=== PATIENT | male | born 2000 | race Caucasian/White ===

== ENCOUNTER 2022-08-12 11:50 | Outpatient (RCR) | payer BC, SELFPAY ==
--- NOTE | 2022-08-12 12:53 | HP.PTEVAL_ITS ---
Patient's Visit Information MARIA DE JESUS PIZARRO is a 22 year old M referred to Physical Therapy by ISAIAH Lewis with a diagnosis of Quad Tendonitis. Date of Evaluation: 08/12/22 Physical Therapist: Iwona Velez MPT - Visit Plan Plan: Pt only wants a HEP. HEP was given. Bridges, SLR, S/L hip abd, heel slides in chair and supine, Prone hip ext with knee bent, goblet squat, and SLB. Pt will call in in 3 weeks and let us know if his knee is any better - Subjective Pt reports that he has a pain in his R knee since April. It was a stiffness and grew to a constant pain. His ortho Dr feels that it is tendonitis but he does not feel like it is. He feels that he could have bumped it along the way but not sure of an exact incident. He reports that he has popping in his R knee. It is a constant pain. Walking hurts it. He has not been doing any exercises with his knee at all. If he is driving with light pressure he can feel it more. He has no N&T. He has stiffness and annoying pain. He feels that the pain is in the joint. He has been keeping his knee extended in s itting. Anti-inflamm and not helping much at all. Stairs: going up the stair he tries to keep pressure on the L knee. He has a bike on a life skills trainer. If he lays on his stomach he will get anterior knee pain or if he sleeps on either side he will get pain (sleeping on either side). Pt wants a HEP to do on his own time. - Pain R knee pain Pain Intensity (Out of 10): 3 Comment: up and walking around 5/10 - Objective Gait: Walks with slightly decreased stance time on the R. Stairs: up and down recip. No handrail. Going up the step he has slight hesitancy putting pressure through the R leg to ascend and descending he ER his R LE and spends less time on the R LE. R knee AROM: 0-140 degrees B. Good Quad set. Able to SLR X 10 without touching the table in between. R knee MMT: R hip flex 15.7 and L 14.8. R knee ext 13.9# and L knee ext 18.7. R knee flex 6.1 and L 9.2. R hip abd 11.3 and L hip abd 13. SLB: B 30 seconds with a little less stability on the R compared to the L. Pt had no pain with McMurrays (just his basic pain), - Anterior Drawer on the R. - Balance/Special Test Scores Lower Extremity Functional Score: 45 - Goals Goal 1:: I HEP - Rehabilitation Potential Rehabilitation Potential: Good - Anticipated Interventions Thank you for the opportunity to evaluate your patient. For Medicare and Medicare HMO plans, please review the plan of care and approve it. It will need to be FAXED BACK to us at [phone] for Medicare purposes. For Medicare only, by signing this I certify the plan of care. Please let me know if there are questions or concerns regarding this plan of care. Physician Signature: Date:
--- NOTE | 2022-12-14 15:16 | HP.PTDCSUM ---
Discharge Summary D/C summary: It has been my pleasure to treat MARIA DE JESUS PIZARRO referred by ISAIAH Lewis, with the diagnosis of Quad Tendonitis for a total of 1 visit(s). Discharge Date: 12/14/22 Please see the following information for a summary of their discharge status. Pain R knee pain: Pain Intensity (Out of 10): 3 Goals Goal 1:: I HEP Plan Plan: Pt only wants a HEP. HEP was given. Bridges, SLR, S/L hip abd, heel slides in chair and supine, Prone hip ext with knee bent, goblet squat, and SLB Pt will call in in 3 weeks and let us know if his knee is any better D/C Information Discharge Comments: DC PT as only had a HEP d/c sentence: If there are questions or concerns regarding this patient's physical therapy, please feel free to call me at [phone]. Thank you for the referral of this patient. Sincerely, Iwona Velez, MPT Balance/Gait/Functional tests Balance/Special Test Scores Lower Extremity Functional Score: 45
== END 2022-08-12 19:00 | disposition home or self-care (01) ==
LOC: PT 11:50
DX: M76.899 Other specified enthesopathies of unspecified lower limb, excluding foot (principal); M25.561 Pain in right knee
CPT/HCPCS: 97110; 97161

== ENCOUNTER → 2023-05-25 | Outpatient (CLI) | payer BC, SELFPAY ==
[2023-05-25 10:18] LABS: Absolute Neutrophil Count 3.8 X10^3/uL (2.0-7.7); Basophil# 0.05 X10^3/uL; Basophil% 0.8 % (0-1); Eosinophil# 0.15 X10^3/uL; Eosinophils% 2.4 % (0-5); Hematocrit 47.1 % (40-54); Hemoglobin 16.1 g/dL (13.0-16.5); Lymphocyte % 27.7 % (19-41); Mean Corp Hgb Conc 34.2 g/dL (32-36); Mean Corpuscular Hgb 28.5 pg (27.0-32.0); Mean Corpuscular Volume 83.5 fL (80-94); Mean Platelet Vol. 10.5 fl (6.2-12.0); Monocyte# 0.37 X10^3/uL; NRBC Flagged by Analyzer 0 % (0-5); Neutrophil # 3.84 X10^3/uL (2.7-7.7); Neutrophil % 62.8 % (47-70); Platelet Count 283 K/mm3 (150-450); RBC Distribution Width CV 11.6 % (11.6-14.6); RBC Distribution Width SD 34.8 fl (35.1-43.9); Red Blood Count 5.64 M/mm3 (4.6-6.2); White Blood Count 6.1 K/mm3 (4.4-11.0)
[2023-05-25 11:09] LABS: ALB/GLOB Ratio 1.3 RATIO (0.9-2.4); AST(SGOT) 15 U/L (15-37); Alanine Aminotransfer ALT/SGPT 32 U/L (16-61); Albumin, Serum 4.4 g/dL (3.2-5.0); Alkaline Phosphatase 42 U/L (45-117); Anion Gap 3 (5-15); BUN 17 mg/dL (7-18); BUN/Creat Ratio 15.6 RATIO (10-20); Calcium,Total 9.9 mg/dL (8.5-10.1); Chloride 106 mmol/L (98-107); Creatinine, Serum 1.09 mg/dL (0.70-1.30); EST Glomerular Filtration Rate 88 mL/min (>60); Est Glom Filt Rate - Afr Amer 107 mL/min (>60); Globulin 3.5 g/dL (2.2-4.2); Glucose 86 mg/dL (74-106); Potassium 4.3 mmol/L (3.5-5.1); Protein, Total 7.9 g/dL (6.4-8.2); Sodium Level 138 mmol/L (136-145); Thyroid Stim Hormone (TSH) 1.09 uIU/mL (0.358-3.74)
== END | disposition home or self-care (01) ==
LOC: LAB 09:21
PROVIDERS: PCP Internal Medicine; Referring Provider Internal Medicine; Visit Provider Internal Medicine
DX: R07.9 Chest pain, unspecified (principal); F32.1 Major depressive disorder, single episode, moderate
CPT/HCPCS: 36415; 80053; 82306; 84443; 85025

== ENCOUNTER → 2023-06-16 | Outpatient (CLI) | payer BC, SELFPAY ==
[2023-06-19 15:08] LABS: H. PYLORI STOOL AG Negative (Negative)
== END | disposition home or self-care (01) ==
LOC: LABSPEC 15:05
PROVIDERS: PCP Internal Medicine; Referring Provider Internal Medicine; Visit Provider Internal Medicine
DX: K21.9 Gastro-esophageal reflux disease without esophagitis (principal)
CPT/HCPCS: 87338

== ENCOUNTER → 2023-07-11 | Outpatient (CLI) | payer BC, SELFPAY ==
--- NOTE | 2023-07-11 08:48 | RAD_ITS ---
STUDY: AIR CONTRAST ESOPHAGRAM AND UPPER GI SERIES REASON FOR EXAM: Male, 23 years old. K21.9 - Gastro-esophageal reflux disease without esophagitis FLUOROSCOPY TIME (if supplied): (1 minute and 37 seconds) minutes/seconds. 47.96 mGy. 18 images were submitted. TECHNIQUE: SINGLE CONTRAST AND AIR CONTRAST FLUOROSCOPIC IMAGES. COMPARISON: None. FINDINGS: The cervical esophagus demonstrates normal motility without aspiration. There is no stricture or extrinsic mass effect. No intraluminal polypoid mass is identified. The thoracic esophagus distends well without stricture or mucosal fold thickening. No mucosal ulcerations are identified. There is no extrinsic mass effect. There are no diverticula. The patient ingested a 12 mm tablet of barium without any difficulty. No hiatal hernia or gastroesophageal reflux was identified. The stomach distends well without mucosal fold thickening or mucosal ulceration. There is no intraluminal mass. The duodenal bulb is freely distensible without deformity or ulceration. The duodenal sweep is normal in position and caliber. RAD/Upper GI w/BA Swallow IMPRESSION: Normal air-contrast esophagram and upper GI series. Electronically Signed: Rubens Mckeon MD at 9:44 EST ,
== END | disposition home or self-care (01) ==
LOC: RAD 08:47
PROVIDERS: PCP Internal Medicine; Referring Provider Surgery; Visit Provider Surgery
DX: K21.9 Gastro-esophageal reflux disease without esophagitis (principal)
CPT/HCPCS: 74246

== ENCOUNTER 2023-08-11 08:10 | Day surgery (SDC) | payer BC, SELFPAY ==
[2023-08-11] MEDS: Lactated Ringers 1,000 ML 15 ML IV (08:43)
[2023-08-11 08:46] VITALS: BP 118/76; PULSE 58; RESP 18; TEMP 36.8; O2SAT 100; BMI 26.5
--- NOTE | 2023-08-11 09:30 | IMM_PTH ---
PATHOLOGY RESULTS PATIENT: MARIA DE JESUS PIZARRO LOC: EN U#:[id number] AGE/SX: 23/M ROOM: RE08/11/[address]: Dr. Adam Terry MD : 2000 BED: DIS: 08/11/2023 SPEC #: [id number] RECD: 08/14/23 09:31 STATUS: KHADRA MARCELO #: [id number] JACQUELIN: 08/11/23 09:[address]: Adam Terry DEPT: IMMUNOHISTOCHEMISTRY RECD BY: Katrin Bowling ENTERED: 08/14/23 09:32 SP TYPE: IMMUNO OTHR DR: Dr. Nicki Corbett MD Tissues: Stomach, NOS Procedures: H Pylori (initial) PHYSICIAN & INSTITUTION [place] [id number] SPECIMEN INFORMATION: Tissue Source: A - Antrum Clinical Info: Early satiety, heartburn Specimen Number: [id number] CPT code: 61646 METHODOLOGY: Deparaffinized sections of prefer/formalin-fixed tissue or PAP/DQ stained slides are incubated with monoclonal/polyclonal antibodies/oligonucleotide probes. Localization is made via biotin free immunoperoxidase method. Appropriate controls are performed and reacted as expected. Results on target cell population are indicated in the following table: RESULTS: ANTIBODY / CLONE RESULT Block A H Pylori (polyclonal) negative These tests were developed and their performance characteristics determined by [facility]. They may not have been cleared or approved by the U.S. Food and Drug Administration. The FDA has determined that such clearance or approval is not necessary. The above immunohistochemical/dualISH markers are ordered and reviewed by the Pathologist. INTERPRETATION: A. Antrum, biopsy: Negative for Helicobacter pylori organisms. AM:leif 08/15/2023
--- NOTE | 2023-08-11 09:30 | EGD_PTH ---
PATHOLOGY RESULTS PATIENT: MARIA DE JESUS PIZARRO LOC: EN U#:[id number] AGE/SX: 23/M ROOM: RE08/11/[address]: Dr. Adam Terry MD : 2000 BED: DIS: 08/11/2023 SPEC #: [id number] RECD: 08/14/23 08:05 STATUS: KHADRA MARCELO #: [id number] JACQUELIN: 08/11/23 09:[address]: Adam Terry DEPT: SURGICAL PATHOLOGY RECD BY: Shelbie Moss ENTERED: 08/14/23 08:05 SP TYPE: EGD BIOPSY JAKY DR: Dr. Nicki Corbett MD Tissues: Gastric mucous membrane Esophageal mucous membrane Esophageal mucous membrane Procedures: Special Stain Group II Surgery Specimen Level IV Alcian Blue/PAS (control) HEADER OPERATION: EGD - PH probe PRE-OP DIAGNOSIS: Early satiety, heartburn TISSUE SUBMITTED: A - Antrum for H. pylori and pathology, B - Gastroesophageal junction biopsy, C - Mid esophageal biopsy MICROSCOPIC DIAGNOSIS A. Antrum, biopsy: Mild gastritis. See microscopic description and comment. B. Gastroesophageal junction, biopsy: Fragments of gastroesophageal mucosa with chronic inflammation. Intestinal metaplasia (goblet cell metaplasia) not identified. See comment. C. Mid esophageal biopsy: Fragments of benign squamous epithelium. SJ:rg 08/15/2023 COMMENT A. The results of immunohistochemistry for Helicobacter pylori will be reported separately ([id number]). B. The specimen predominantly consists of squamous mucosa. Alcian blue/PAS stain with matched control is used in the evaluation of the specimen. MICROSCOPIC DESCRIPTION Slides are reviewed. A. The specimen shows fragments of gastric mucosa with chronic inflammatory cell infiltrates in the lamina propria consisting of lymphocytes and plasma cells, consistent with mild chronic gastritis. GROSS DESCRIPTION A - Received in fixative is one container labeled with the patient's name and designated antrum biopsy. The specimen consists of three irregular fragments of light lorenzana soft tissue that in aggregate measure 0.6 x 0.2 x 0.1 cm. The specimen is totally submitted in one cassette. B - Received in fixative is one container labeled with the patient's name and designated GE junction biopsy. The specimen consists of multiple irregular fragments of light lorenzana soft tissue that in aggregate measure 0.6 x 0.3 x 0.1 cm. The specimen is totally submitted in one cassette. C - Received in fixative is one container labeled with the patient's name and designated mid esophagus biopsy. The specimen consists of two irregular fragments of light lorenzana soft tissue that in aggregate measure 0.5 x 0.4 x 0.1 cm. The specimen is totally submitted in one cassette. / SJ:rg 08/14/2023 TC:3 CPT: 81496 x3, 77053
--- NOTE | 2023-08-11 09:31 | PCM.HP.BLA ---
History and Physical Date of Admission: 08/11/23 Date of Service: 07/06/23 MR#: [id number] Acct: [id number] Name: MARIA DE JESUS PIZARRO Rep #: [id number] : 2000 Provider: Dr. Adam Terry MD Age/Sex: 23/M Location: [facility] Status: Signed Intake Vital Signs 06/14/2406:34 07/06/2412:04 Height 5 ft 11 in 5 ft 11 in Weight: 174 lb 6 oz 178 lb BMI 24.3 24.8 BP 120/60 134/86 H Blood Pressure Location Lt brachial Rt brachial Position Sitting Sitting Respiration 16 17 Pulse 81 76 Pulse Source Monitor Monitor Temp 98.6 F 97.4 F L Temp Source Temporal Temporal Pulse Oximetry (%) 97 99 Oxygen Delivery Method room air room air Intake Visit Reasons: ACID REFLUX Chief Complaint: acid reflux Is patient in pain?: No Allergies No Known Allergies Allergy (Unverified 07/06/23 13:05) Medications ibuprofen 200 mg tablet 200 mg PO Q6H PRN 07/04/22 [History Confirmed 07/06/23] omeprazole 20 mg capsule,delayed release 20 mg PO DAILY #30 caps 06/20/23 [Rx Confirmed 07/06/23] creatine monohydrate 5,000 mg oral powder packet mg PO 07/06/23 [History Confirmed 07/06/23] multivitamin 1 tab PO DAILY 07/06/23 [History Confirmed 07/06/23] PFSH Medical History Acute bronchitis, unspecified Acute pharyngitis, unspecified Gastroenteritis Seasonal allergies URI (upper respiratory infection) Surgical History No pertinent past surgical history Family History Grandfather Heart diseaseGrandmother Alcoholism Social History household members: family current occupational status: employed and student current occupation: [employer], studying natural resource management Smoking Status: Never smoker Electronic Cigarette Use: not used alcohol intake: never substance use type: former substance user Date of last use: 02/2023 and marijuana what type of physical activity do you participate in: weight training frequency: 3-4 times per week do you feel safe at home: Yes HPI HPI HPI: Patient is a 23-year-old male who presents for what is initially described as acid reflux , however as he proceeds with his history he admits that his symptoms are primarily more of heartburn. They are referred for surgical consultation from Dr. Corbett. Patient shares that his early symptoms began his acid reflux which she concluded was due to too much caffeine and states that when she was able to cut back on this caffeine (to 1 cup of coffee daily) he had near complete resolution of his symptoms for the summer. He states that then starting in March he began using lots of marijuana and this led to not only recurrence of his symptoms but a early feeling of fullness. He shares that while quitting marijuana helped, it did so incompletely. He was a started on omeprazole and he reports that this also helped modestly but he continued with some nausea. He states that feeling hungry does not feel the same . He denies any experience of regurgitation or acid burning. He states that his heartburn symptoms are occurring with a frequency of 1 time per week whereas previously they were 1 time per day. His biggest complaint, however, is that he is feeling uncomfortably full after a normal sized meal. He shares that his last use of marijuana was on 07/02/2023 but previously he used all day every day . They have not attempted dietary modifications beyond the omission of caffeine as he states he was unaware of these dietary recommendations. He also shares that he has not tried any additional [id number] medications besides the omeprazole. He does report that he tries to avoid eating at least a couple of hours before bedtime and tends to eat dinner around 8 PM before retiring to bed at around 11 PM or midnight. He does not sleep with his head propped on a pillow. Previous work-up has included: H. pylori testing which was negative. ROS General General: No weight change, appetite, fatigue, colon cancer, breast cancer or weakness HEENT HEENT: No difficulty swallowing, eye injury, eye surgery, swollen glands or hoarseness Endo Endocrine: No thyroid disease, diabetes mellitus, thyroid cancer, Hair loss, heat intolerance or cold intolerance Skin Skin: No rash or changing moles Musc Musculoskeletal: No back problems, arthritis, rheumatoid arthritis, gout or joint pain Cardio Cardiovascular: No murmur, pacemaker, heart disease, atrial fibrillation, high blood pressure, heart attack, heart stent, palpitations, shortness of breat with exertion or chest pain Psych Psychiatric: Yes depression and anxiety; No hearing voices Resp Respiratory: No shortness of breath, No sleep apnea, No cough, No COPD, No asthma, No emphysema and No wheezing Gastro Gastrointestinal: No abdominal pain, Yes nausea or vomiting, No diarrhea, No constipation, No blood in stool, Yes acid reflux, No hemorrhoids, No ulcers, No gallbladder problem and No black,tarry stools Nilesh Hematologic: No blood thinners, No blood disorders, No bleeding, No anemia and No blood clots Neuro Neurologic: No system reviewed and no additional complaints, except as documented, No as per HPI, No abnormal gait, No abnormal hearing, No abnormal movements, No abnormal speech, No behavioral changes, No burning sensations, No confusion, No convulsions, No disequilibrium, No dizziness, No localized weakness, No frequent falls, No headache(s), No lack of coordination, No loss of vision, No memory loss, No numbness, No other visual disturbances, No radicular pain, No restless legs, No sensory deficit, No syncope, No tingling, No tremor(s), No weakness and No other Exam Const General: cooperative and anxious Orientation: alert and awake Resp Effort & Inspection: normal respiratory effort GI Other: No scars, nondistended, thin, nontender to palpation apart from mild tenderness of the epigastrium Assessment and Plan Assessment and Plan (1) Heartburn symptom: Status: Acute (2) Early satiety: Status: Acute Orders: Orders Upper GI w/BA Swallow Today K21.9 - Gastro-esophageal reflux disease without esophagitis Plan Patient is a 23-year-old male who presents with a somewhat nonspecific history of heartburn, possible acid reflux, and symptoms of early satiety which were initially linked back to a excessive use of caffeine. However, after patient has cut back on using caffeine he persists with symptoms?particularly bothered by the early satiety. He was negative for H. pylori per stool antigen testing. He does appear to have had a modest benefit with initiation of PPI medication (omeprazole). Additionally confounding this picture is his use of cannabis. I have strongly urged him to immediately cease any use of cannabis as we work to try to sort out his symptoms. I also discussed with him the possibility of underlying hiatal hernia or dyspepsia. I agree with the initial course of action to pursue EGD, but I additionally am recommending we pursue pH probe placement as a way of trying to correlate with his symptoms any objective data about his acid reflux. Lastly, I have recommended that we pursue esophagram with upper GI and barium swallow. Mr. Pizarro is receptive of these recommendations and confirms his intent to stop the cannabis use. I have examined the patient and the H&P has been reviewed. There are no clinical changes since date of exam. Patient confirms that he has discontinued his PPI as instructed. He notes that he has not had any increased frequency of symptoms but does have persistent complaints of reflux/regurgitation. He denies any further questions related to the procedure so we will proceed for upper endoscopy with pH probe placement as discussed in greater detail above.
[2023-08-11 10:00] VITALS: BP 112/74; BP 118/76; PULSE 60; RESP 14; TEMP 36.2; O2SAT 95
[2023-08-11 10:05] VITALS: BP 118/72; BP 118/76; PULSE 74; RESP 16; O2SAT 99
--- NOTE | 2023-08-11 10:06 | OP.CCLET_ITS ---
08/11/2023 Nicki Corbett Md Re : Upper GI endoscopy procedure for Benny Vergara Dear Aric This procedure was performed on Friday, August 11, 2023. My impressions and recommendations are as follows: Impressions : - No gross lesions in the duodenal bulb, in the first portion of the duodenum and in the second portion of the duodenum. - Normal antrum. Biopsied. - No gross lesions in the entire stomach. No specimens collected. - Small hiatal hernia. No specimens collected. - Z-line irregular, 43 cm from the incisors. Biopsied. - Mucosal nodule found in the esophagus. Biopsied. - No gross lesions in the lower third of the esophagus. - The BENNETT pH capsule was deployed. Recommendations : - Discharge patient to home (via wheelchair). - Resume previous diet today. - Recommend acid suppression medication. - Await pathology results. - Telephone my office for pathology results in 1 week. - No aspirin, ibuprofen, naproxen, or other non-steroidal anti-inflammatory drugs for 2 days after biopsy. My findings are described in the full procedure note, which is enclosed. If I can be of further assistance, please feel free to contact me at Doctor phone number(s): , Work: . Sincerely, Adam Terry MD 08/11/2023 10:05:45 AM This report has been signed electronically.
--- NOTE | 2023-08-11 10:06 | OP.EGD_ITS ---
Patient Name: Benny Vergara Procedure Date: 08/11/2023 9:26 AM Date of : 2000 Age: 23 Procedure: Upper GI endoscopy Indications: Suspected esophageal reflux, Esophageal reflux symptoms that recur despite appropriate therapy Providers: Adam Terry MD Referring MD: Nicki Corbett Md Medicines: See the Anesthesia note for documentation of the administered medications Patient Profile: Refer to note in patient chart for documentation of history and physical. Patient has symptoms of chronic dyspepsia and chronic regurgitation. Complications: No immediate complications. Estimated blood loss: Minimal. Procedure: Pre-Anesthesia Assessment: - The heart rate, respiratory rate, oxygen saturations, blood pressure, adequacy of pulmonary ventilation, and response to care were monitored throughout the procedure. After obtaining informed consent, the endoscope was passed under direct vision. Throughout the procedure, the patient's blood pressure, pulse, and oxygen saturations were monitored continuously. The gastroscope was introduced through the mouth, and advanced to the second part of duodenum. The upper GI endoscopy was accomplished without difficulty. The patient tolerated the procedure well. Scope In: 9:37:48 AM Scope Out: 9:54:28 AM Total Procedure Duration Time 0 hours 16 minutes 40 seconds Findings: No gross lesions were noted in the duodenal bulb, in the first portion of the duodenum and in the second portion of the duodenum. Estimated blood loss: none. The gastric antrum was normal. Biopsies were taken with a cold forceps for histology. Biopsies were taken with a cold forceps for Helicobacter pylori testing. Estimated blood loss was minimal. No gross lesions were noted in the entire examined stomach. No biopsies or other specimens were collected for this exam. A small hiatal hernia was present. No biopsies or other specimens were collected for this exam. The Z-line was irregular and was found 43 cm from the incisors. Biopsies were taken with a cold forceps for histology. Estimated blood loss was minimal. A few 3 mm mucosal nodules with a localized distribution were found in the middle third of the esophagus. Biopsies were taken with a cold forceps for histology. No gross lesions were noted in the lower third of the esophagus. The BENNETT capsule with delivery system was introduced through the mouth and advanced into the esophagus, such that the BENNETT pH capsule was positioned 37 cm from the incisors, which was 6 cm proximal to the GE junction. The BENNETT pH capsule was then deployed and attached to the esophageal mucosa. The delivery system was then withdrawn. Endoscopy was utilized for probe placement and diagnostic evaluation. Impression: - No gross lesions in the duodenal bulb, in the first portion of the duodenum and in the second portion of the duodenum. - Normal antrum. Biopsied. - No gross lesions in the entire stomach. No specimens collected. - Small hiatal hernia. No specimens collected. - Z-line irregular, 43 cm from the incisors. Biopsied. - Mucosal nodule found in the esophagus. Biopsied. - No gross lesions in the lower third of the esophagus. - The BENNETT pH capsule was deployed. Recommendation: - Discharge patient to home (via wheelchair). - Resume previous diet today. - Recommend acid suppression medication. - Await pathology results. - Telephone my office for pathology results in 1 week. - No aspirin, ibuprofen, naproxen, or other non-steroidal anti-inflammatory drugs for 2 days after biopsy. Procedure Code(s): --- Professional --- 31356, Esophagogastroduodenoscopy, flexible, transoral; with biopsy, single or multiple Diagnosis Code(s): --- Professional --- K44.9, Diaphragmatic hernia without obstruction or gangrene K22.89, Other specified disease of esophagus K21.9, Gastro-esophageal reflux disease without esophagitis CPT copyright 2021 [employer]. All rights reserved. The codes documented in this report are preliminary and upon machine programmer review may be revised to meet current compliance requirements. Adam Terry MD 08/11/2023 10:05:45 AM This report has been signed electronically. Number of Addenda: 0 Note Initiated On: 08/11/2023 9:26 AM
[2023-08-11 10:10] VITALS: BP 115/78; BP 118/76; PULSE 63; RESP 16; O2SAT 98
[2023-08-11 10:15] VITALS: BP 116/76; BP 118/76; PULSE 54; RESP 16; TEMP 36.6; O2SAT 99
[2023-08-11 10:42] VITALS: BP 118/76
== END 2023-08-11 10:49 | disposition home or self-care (01) ==
LOC: EN 08:11 → AC 08:13
PROVIDERS: PCP Internal Medicine; Referring Provider Internal Medicine; Visit Provider Surgery
PROC: (CPT 43235; principal; 2023-08-11 09:25)
DX: K44.9 Diaphragmatic hernia without obstruction or gangrene (principal); R68.81 Early satiety; K21.9 Gastro-esophageal reflux disease without esophagitis; K22.89 Other specified disease of esophagus; K29.70 Gastritis, unspecified, without bleeding
CPT/HCPCS: 43239; 88305; 88313; 88342; J7120; J2405

== ENCOUNTER → 2023-09-15 | Day surgery (SDC) | payer BC, SELFPAY ==
[2023-09-15 11:10] VITALS: BP 124/75; PULSE 67; RESP 16; O2SAT 100
[2023-09-15] MEDS: Lidocaine Jelly 2% 20 ML Syringe (URO-JET) 1 APPLIC (11:10)
== END | disposition home or self-care (01) ==
PROVIDERS: PCP Internal Medicine; Referring Provider Internal Medicine; Visit Provider Surgery
PROC: F00ZJWZ Instrumental Swallowing and Oral Function Assessment using Swallowing Equipment (ICD-10-PCS; CPT 43235; principal; 2023-09-15 10:55)
DX: K44.9 Diaphragmatic hernia without obstruction or gangrene (principal)
CPT/HCPCS: 91010

== ENCOUNTER 2023-11-16 09:00 | Outpatient (RCR) | payer BC, SELFPAY ==
--- NOTE | 2023-11-14 10:01 | HP.PTEVAL ---
Patient's Visit Information Visit Information Visit Information: MARIA DE JESUS PIZARRO is a 23 year old M referred to Physical Therapy by ISAIAH Jewell with a diagnosis of RADICULOPATHY LUMBAR ,STRAIN OF MUSCLE OF LOW BACK. Date of Evaluation: 11/14/23 Physical Therapist: Bahman Shelby, PT, Cert MDT, OCS Visit Plan Frequency: 1-2x /Week Duration: 4 Weeks Plan: PT INTERVENTIONS LIN EX'S ,DLS .,POSTURE/BODY MECHANICS AND ACTIVITY MODIFICATIONS Subjective Subjective: This 23 y/o male presents to physical therapy with lumbar radiculopathy. Patient injury back ~ 2 weeks . Patient helping friend heavy equipment bending over. Then pain worse with [employer] golf Noticed sharp pain in back left > right. Patient PA Now [facility] prednisone and muscle relaxer. Pain is getting better, Aggravating bending ,heavy lifting twisting, and sitting. Occasionally had symptoms in anterior leg. Alleviating walking. AM stiffness . Coughing/sneezing-. Denies parastshia/tingling-Sleeping okay.Patient pain affects QOL and function. Plans to leave to [place] working on [employer] for 6 months. SOCIAL: single VOCATION: Volunteer Pain Bilateral Back: Pain Intensity (Out of 10): 2 Pain Intensity Range: 10 Objective Objective: POSTURE: mild forward posture GAIT: reciprocal pattern NEURO: denies paresthesia/tingling ,reflexes L3-4,L4-5,L5-S1 1/3 LUMBAR ROM: flexion WNL ,extension min loss ,side glides WFL FLEXABLITY: hamstrings min tight + ANR LEFT MMT: quads/hams/hip and ankle 5/4 Special Tests L/S Slump test left side: Positive L/S Slump test right side: Negative L/S Left Straight Leg Raise: Positive L/S Right Straight Leg Raise: Negative Lumbar Standing: Flexion - Mechanical Response: No effect Lumbar Standing: Flexion - Symptoms During Testing: Increases Lumbar Standing: Flexion - Symptoms After Testing: No worse Lumbar Standing: Extension - Mechanical Response: No effect Lumbar Standing: Extension - Symptoms During Testing: Increases Lumbar Standing: Extension - Symptoms After Testing: No worse Lumbar Standing: Right Side Glides - Mechanical Response: No effect Lumbar Standing: Right Side [place] - Symptoms During Testing: Increases Lumbar Standing: Right Side [place] - Symptoms After Testing: No worse Lumbar Standing: Left Side [place] - Mechanical Response: No effect Lumbar Standing: Left Side [place] - Symptoms During Testing: No effect Lumbar Standing: Left Side [place] - Symptoms After Testing: No effect Lumbar Lying: Flexion - Mechanical Response: No effect Lumbar Lying: Flexion - Symptoms During Testing: No effect Lumbar Lying: Flexion - Symptoms After Testing: No effect Lumbar Lying: Extension - Mechanical Response: No effect Lumbar Lying: Extension - Symptoms During Testing: Centralizing Lumbar Lying: Extension - Symptoms After Testing: Better Balance/Special Test Scores Oswestry Low Back Score: 17 Goals Goal 1:: Patient to be I with HEP for back Goal Time Frame: 4-6 Weeks Goal 2:: Patient to improve posture/body mechanics 80% of the time Goal Time Frame: 4-6 Weeks Goal 3:: Patient to improve lumbar ROM for function of recovery for job demands Goal Time Frame: 4-6 Weeks Goal 4:: Patient to demonstrate 70% improvement with less pain and improved function Goal Time Frame: 4-6 Weeks Goal 5:: Patient to improve back oswestry score by 5 points to improve QOL Goal Time Frame: 4-6 Weeks Rehabilitation Potential Physical Therapy Diagnosis: This patient has lumbar radiculopathy with possible disc derangement with pain with positioning and motion testing better with extension and walking thus benefit from skilled PT Rehabilitation Potential: Good Anticipated Interventions Patient/Client Instruction: Educate patient on: Condition and Plan of Care For the Purpose of:: To decrease pain, To increase ROM, To improve muscle performance and motor function, To improve ability to perform ADL's, To increase tolerance to activity/condition/position, To improve ability of physical actions for home/community/work/leisure, To improve health of tissue, To decrease soft tissue restriction, To increase flexibility/ROM and To improve safety with gait Therapeutic Exercise to Include: Strength training, Power training, Body mechanics, Postural training, Flexibilty training, Dynamic Lumbar Stabilization and Lin Exercises For the Purpose of:: To decrease pain, To increase ROM, To improve nutrient delivery to tissue, To increase oxygenation perfusion, To improve muscle performance and motor function, To improve ability of physical actions for home/community/work/leisure, To improve health of tissue and To decrease soft tissue restriction Text: Thank you for the opportunity to evaluate your patient. For Medicare and Medicare HMO plans, please review the plan of care and approve it. It will need to be FAXED BACK to us at [phone] for Medicare purposes. For Medicare only, by signing this I certify the plan of care. Please let me know if there are questions or concerns regarding this plan of care. Physician Signature: Date:
--- NOTE | 2023-11-16 10:32 | HP.PTDCSUM ---
Discharge Summary D/C summary: It has been my pleasure to treat MARIA DE JESUS PIZARRO referred by ISAIAH Jewell, with the diagnosis of RADICULOPATHY LUMBAR ,STRAIN OF MUSCLE OF LOW BACK for a total of 2 visit(s). Discharge Date: 11/16/23 Please see the following information for a summary of their discharge status. Subjective Subjective: Stiffness Pain Bilateral Back: Pain Intensity (Out of 10): 0 Overall Improvement % Improvement: 50 Objective Objective/Function: Doing well LUMBAR ROM: WNL STRENGTH : 5/5 Goals Goal 1:: Patient to be I with HEP for back Goal Progress: Goal Met Goal 2:: Patient to improve posture/body mechanics 80% of the time Goal Progress: Goal Met Goal 3:: Patient to improve lumbar ROM for function of recovery for job demands Goal Progress: Progressing Goal 4:: Patient to demonstrate 70% improvement with less pain and improved function Goal Progress: Progressing Goal 5:: Patient to improve back oswestry score by 5 points to improve QOL Goal Progress: Progressing Plan Plan: d/c to HEP D/C Information d/c sentence: If there are questions or concerns regarding this patient's physical therapy, please feel free to call me at [phone]. Thank you for the referral of this patient. Sincerely, Bahman Shelby, PT, Cert MDT, OCS Balance/Gait/Functional tests Balance/Special Test Scores Oswestry Low Back Score: 7 Improvement % Improvement: 50
== END 2023-11-16 19:00 | disposition home or self-care (01) ==
LOC: PT 09:00
PROVIDERS: PCP Internal Medicine; Referring Provider Physician Assistant; Visit Provider Physician Assistant
DX: S39.012D Strain of muscle, fascia and tendon of lower back, subsequent encounter (principal); M54.16 Radiculopathy, lumbar region
CPT/HCPCS: 97110; 97161